=== PATIENT | male | born 1985 | race African-American/Black ===

== ENCOUNTER 2018-07-15 14:04 | Emergency (ER) | payer SELFPAY ==
[2018-07-15] MEDS ORDERED: AMPICILLIN SOD/SULBACTAM 3 GM VIAL IV ONE (14:33)
[2018-07-15] MEDS ORDERED: NORMAL SALINE 1000 ML 1,000 ML IV ONE (14:33)
[2018-07-15] MEDS ORDERED: DEXAMETHASONE SOD PHOS INJ 10 MG/1 ML VIAL IV ONE (14:33)
[2018-07-15] MEDS ORDERED: MORPHINE SULFATE 10 MG/ML INJ IV ONE (14:35)
[2018-07-15] MEDS ORDERED: KETOROLAC TROMETHAMINE INJ/PF 30 MG/1 ML SDV IV ONE (14:35)
--- NOTE | 2018-07-15 14:36 | ER Document Report ---
ED Medical Screen (RME) - General Chief Complaint: Sore Throat Stated Complaint: SORE THROAT Time Seen by Provider: 07/15/18 14:28 Mode of Arrival: Ambulatory Information source: Patient Notes: pt c/o sore throat x 4 days, pt reports chills and bodyaches. Patient complains of difficulty with swallowing. Patient with a left-sided peritonsillar abscess I have greeted and performed a rapid initial assessment of this patient. A comprehensive ED assessment and evaluation of the patient, analysis of test results and completion of the medical decision making process will be conducted by additional ED providers. TRAVEL OUTSIDE OF THE [place] IN LAST 30 DAYS: No - Related Data Allergies/Adverse Reactions: No Known Allergies Allergy (Unverified 07/15/18 14:05) Physical Exam - Vital signs Vitals: Temp Pulse Resp BP Pulse Ox 99.4 F 74 18 149/87 H 99 07/15/18 14:27 07/15/18 14:27 07/15/18 14:27 07/15/18 14:27 07/15/18 14:27 - HEENT Pharynx: Peritonsillar abscess - left Course - Vital Signs Vital signs: Temp Pulse Resp BP Pulse Ox 98.1 F 62 18 142/81 H 100 07/15/18 18:31 07/15/18 18:31 07/15/18 18:31 07/15/18 18:31 07/15/18 18:31 - Laboratory Result Diagrams: 07/15/18 14:58 07/15/18 14:58 Laboratory results interpreted by me: 07/15/18 07/15/18 14:58 14:58 WBC 11.9 H RBC 6.13 H RDW 14.9 H Absolute Neutrophils 8.5 H Absolute Monocytes 1.5 H Glucose 112 H Doctor's Discharge - Discharge Clinical Impression: Left intratonsillar abscess Condition: Stable Disposition: HOME, SELF-CARE Additional Instructions: You were seen today for a left intratonsillar abscess this means that the abscess inside of the left tonsil. You have been treated with an IV antibiotic and IV fluids while in the emergency room as well as IV steroids. These will all help to make the tonsil a little smaller and decrease some of the swelling in your neck and throat. The treatment for an intratonsillar abscess is to have it drained. You will need to follow-up with the ears nose and throat specialist in the morning to have this drained. You will follow-up with Dr. Gilliland's office at 8:00 in the morning. He states to have liquids in the morning but a light breakfast if you eat food. You will be sent home with a prescription for antibiotics, steroids, and pain medications. Augmentin Augmentin is a mixture of amoxicillin and clavulanate. Amoxicillin is a member of the penicillin family. It covers the germs likely to cause ear, bronchial, and urinary infections better than plain penicillin. The addition of clavulanate allows it to cover staph infections of the skin, as well as resistant cases of ear and sinus infections. Your physician has chosen Augmentin for you because of the special nature of your situation. Augmentin is best taken with meals. Nausea after taking the medication is rare, but can occur. Diarrhea can occur, particularly in small children. Vaginal yeast infections, and oral thrush in infants are also common. Contact your physician if these problems occur. Allergy to penicillins is common. If you have had an allergic reaction to any drug of the penicillin family, you should never take any other penicillin. Notify your doctor at once if you develop hives, shortness of breath, swelling, or faintness. STEROID MEDICATION: You have been given an injection of medicine of the cortisone/steroid class. This medication is used to control inflammation or allergy. It is often continued as a pill for a short period of time, until the acute process subsides. There are usually no side effects from short-term use of cortisone-like medications. Some persons feel an increased sense of well-being and are not sleepy at bedtime. Long-term use of cortisone medications is best avoided, unless required for a severe condition. If your condition does not remit, or relapses after the course of corticosteroid medication, you should consult your physician. Toradol Injection You have been given an injection of ketorolac tromethamine (Toradol). This is an excellent, safe drug for pain control. It also has potent antiinflammatory action. You should have significant pain relief within about one hour. Toradol is not addicting and is non-sedating. It does not interfere with driving or work. Call or return if you develop itching, hives, shortness of breath, or rash. Intravenous (IV) Fluids As part of your care today, you received intravenous (IV) fluids. IV fluids are administered to patients who are dehydrated or to those who have certain chemical (electrolyte) abnormalities that need correcting. Oral Narcotic Medication You have been given a prescription for pain control. This medication is a narcotic. It's best taken with food, as nausea can result if taken on an empty stomach. Don't operate machinery or drive within six hours of taking this medication. Do not combine this medicine with alcohol, or with any medication which can cause sedation (such as cold tablets or sleeping pills) unless you get permission from the physician. Narcotics tend to cause constipation. If possible, drink plenty of fluids and eat a diet high in fiber and fruits. FOLLOW-UP CARE: If you have been referred to a physician for follow-up care, call the physician s office for an appointment as you were instructed or within the next two days. If you experience worsening or a significant change in your symptoms, notify the physician immediately or return to the Emergency Department at any time for re-evaluation. Prescriptions: Hydrocodone/Acetaminophen [[place] 5-325 mg Tablet] 1 tab PO Q6HP PRN #7 tablet PRN Reason: Amox Tr/Potassium Clavulanate [Augmentin 875-125 Tablet] 1 tab PO BID 10 Days tablet Dexamethasone [Decadron 4 Mg Tablet] 4 mg PO DAILY #2 tablet Forms: Elevated Blood Pressure, Smoking Cessation Education Referrals: TONYA,NO [NO LOCAL MD] - Follow up as needed HUMBERTO SCHMITT DO [ASSOCIATE] - Follow up tomorrow (Please be at the doctor's office at 8 AM in the morning for incision and drainage of the intratonsillar abscess to left)
[2018-07-15 15:35] LABS: ANION GAP 14 (5-19); BLOOD UREA NITROGEN 10 mg/dL (7-20); CALCIUM 9.8 mg/dL (8.4-10.2); CARBON DIOXIDE 25 mmol/L (22-30); CHLORIDE 103 mmol/L (98-107); GLUCOSE 112 mg/dL (75-110); POTASSIUM 4.4 mmol/L (3.6-5.0); SODIUM 142.4 mmol/L (137-145)
[2018-07-15 15:57] LABS: ABSOLUTE BASOPHILS # (AUTO) 0.1 10^3/uL (0.0-0.2); ABSOLUTE LYMPHOCYTES (AUTO) 1.8 10^3/uL (0.5-4.7); ABSOLUTE MONOCYTES (AUTO) 1.5 10^3/uL (0.1-1.4); ABSOLUTE NEUT (AUTO) 8.5 10^3/uL (1.7-8.2); BASOPHILS % (AUTO) 0.7 % (0-2); EOSINOPHILS % (AUTO) 0.3 % (0-6); HEMATOCRIT 50.5 % (37.9-51.0); HEMOGLOBIN 16.9 g/dL (13.5-17.0); LYMPHOCYTES % (AUTO) 15.2 % (13-45); MEAN CORPUSCULAR HEMOGLOBIN 27.5 pg (27.0-33.4); MEAN CORPUSCULAR HGB CONC 33.4 g/dL (32.0-36.0); MEAN CORPUSCULAR VOLUME 82 fl (80-97); MONOCYTES % (AUTO) 12.2 % (3-13); PLATELET COUNT 223 10^3/uL (150-450); RED BLOOD COUNT 6.13 10^6/uL (4.35-5.55); RED CELL DISTRIBUTION WIDTH 14.9 % (11.5-14.0); SEGMENTED NEUTROPHILS % (AUTO) 71.6 % (42-78); TOTAL CELLS COUNTED % (AUTO) 100 %; WHITE BLOOD COUNT 11.9 10^3/uL (4.0-10.5)
--- NOTE | 2018-07-15 17:13 | RADIOLOGY REPORT (SQ) ---
EXAM DESCRIPTION: CT SOFT TISSUE NECK WITH COMPLETED DATE/TIME: 07/15/2018 4:55 pm REASON FOR STUDY: Enlarged tonsils difficulty swallowing. (right) COMPARISON: None. TECHNIQUE: Post IV contrasted scanning from skull base through lung apices with review of bone, soft tissue and lung windows. Reconstructed coronal and sagittal MPR images reviewed. All images stored on PACS. All CT scanners at this facility use dose modulation, iterative reconstruction, and/or weight based d osing when appropriate to reduce radiation dose to as low as reasonably achievable (ALARA). [facility]: Dose Right [facility]: CareDose [facility]: Dose Right [facility]: Teradose 4D [facility]: [employer] CONTRAST TYPE AND DOSE: contrast/concentration: Isovue 350.00 mg/ml; Total Contrast Delivered: 75.0 ml; Total Saline Delivered: 55.0 ml RENAL FUNCTION: GFR > 60. RADIATION DOSE: CT Rad equipment meets quality standard of care and radiation dose reduction techniq ues were employed. CTDIvol: 19.0 mGy. DLP: 614 mGy-cm. . LIMITATIONS: None. FINDINGS: SKULL BASE: Inferior brain parenchyma unremarkable MAJOR SALIVARY GLANDS: No solid or cystic masses. No inflammatory changes. LYMPHADENOPATHY: No adenopathy. MUCOSAL MASSES OR ASYMMETRY: The left pharyngeal tonsil is enlarged, 4 x 3.2 x 3 cm in size with surr ounding inflammatory change in the adjacent soft tissues. Centrally within the tonsil, a 1.9 x 1.3 c m area of low attenuation is present likely a small intra tonsillar abscess best shown on axial image 41 through 43. Tonsils meet in the midline, causing moderate amanda pharyngeal airway narrowing on axi al image 42. There is peritonsillar edema extending into the left hypopharynx and left aryepiglottic fold without laryngeal airway narrowing. Right pharyngeal tonsil normal size. No inflammatory changes. LARYNX/CORDS: No abnormal findings. VASCULAR STRUCTURES: The major vessels are patent. LUNG APICES: Clear. BONES: Intact. THYROID: Normal size. No masses. PARANASAL SINUSES: Clear. OTHER: No other significant finding. IMPRESSION: Enlarged left pharyngeal tonsil with intra tonsillar abscess. Inflammation extends infe riorly along the left hypopharynx into the aryepiglottic fold. Moderate airway narrowing at the level of the oropharynx. No significant airway narrowing in the lar ynx TECHNICAL DOCUMENTATION: JOB ID: [id number] Quality ID # [id number]: Final reports with documentation of one or more dose reduction techniques (e.g., Au tomated exposure control, adjustment of the mA and/or kV according to patient size, use of iterative reconstruction technique) 2010 [employer]- All Rights Reserved Reading location - IP/workstation name: [email or web address]
[2018-07-15 18:32] VITALS: BP 142/81
--- NOTE | 2018-07-15 18:34 | ER Document Report ---
ED ENT - General Chief Complaint: Sore Throat Stated Complaint: SORE THROAT Time Seen by Provider: 07/15/18 14:28 Mode of Arrival: Ambulatory Notes: 32-year-old male presented to ED for complaint of sore throat times 4 days with fever chills and body aches. He states he had not been to a doctor but the pain was getting worse and he was having more trouble swallowing so he came to the emergency room. He was seen by Dallas Hernandez TRANSCRIBING MACHINE OPERATOR who ordered blood work and a throat culture. TRAVEL OUTSIDE OF THE [place] IN LAST 30 DAYS: No - HPI Patient complains to provider of: Throat problem Onset: Other - 4 days Onset/Duration: Gradual, Worse Quality of pain: Sharp, Stabbing Severity: Severe Pain Level: 5 Context: Recent Illness Location of pain: Throat Associated symptoms: Chills, Fever, Sore throat, Swollen glands Similar symptoms previously: No Recently seen / treated by doctor: No - Related Data Allergies/Adverse Reactions: No Known Allergies Allergy (Unverified 07/15/18 14:05) Past Medical History - General Information source: Patient - Social History Smoking Status: Current Every Day Smoker Cigarette use (# per day): Yes - Pack per day Smoking Education Provided: Yes - Minutes Frequency of alcohol use: Occasional Drug Abuse: Marijuana Lives with: Family Family History: Reviewed & Not Pertinent Patient has suicidal ideation: No Patient has homicidal ideation: No - Past Medical History Cardiac Medical History: Reports: None Pulmonary Medical History: Reports: None EENT Medical History: Reports: None Neurological Medical History: Reports: None Endocrine Medical History: Reports: None Renal/ Medical History: Reports: None Malignancy Medical History: Reports None GI Medical History: Reports: None Musculoskeletal Medical History: Reports None Skin Medical History: Reports None Psychiatric Medical History: Reports: None Traumatic Medical History: Reports: None Infectious Medical History: Reports: None Past Surgical History: Reports: Hx Orthopedic Surgery - Large laceration to left leg and had to go to surgery to repair - Immunizations Immunizations up to date: Yes Review of Systems - Review of Systems Notes: REVIEW OF SYSTEMS: CONSTITUTIONAL : Complains of fever chills and sore throat for the last 4 days EENT: Patient complains of fever and chills for the last 4 days. Denies eye, ear, throat, pain or symptoms. Denies nasal or sinus congestion or discharge. Denies throat, tongue, or mouth swelling or difficulty swallowing. CARDIOVASCULAR: Denies chest pain. Denies palpitations or racing or irregular heart beat. Denies ankle edema. RESPIRATORY: Denies cough, cold, or chest congestion. Denies shortness of breath, difficulty breathing, or wheezing. GASTROINTESTINAL: Denies abdominal pain or distention. Denies nausea, vomiting , or diarrhea. Denies blood in vomitus, stools, or per rectum. Denies black, tarry stools. Denies constipation. GENITOURINARY: Denies difficulty urinating, painful urination, burning, frequency, blood in urine, or discharge. MUSCULOSKELETAL: Denies back or neck pain or stiffness. Denies joint pain or swelling. SKIN: Denies rash, lesions or sores. HEMATOLOGIC : Denies easy bruising or bleeding. LYMPHATIC: Denies swollen, enlarged glands. NEUROLOGICAL: Denies confusion or altered mental status. Denies passing out or loss of consciousness. Denies dizziness or lightheadedness. Denies headache. Denies weakness or paralysis or loss of use of either side. Denies problems with gait or speech. Denies sensory loss, numbness, or tingling. Denies seizures. PSYCHIATRIC: Denies anxiety or stress. Denies depression, suicidal ideation, or homicidal ideation. ALL OTHER SYSTEMS REVIEWED AND NEGATIVE. Dictation was performed using [employer] voice recognition software PHYSICAL EXAMINATION: GENERAL: Well-appearing, well-nourished and in no acute distress. HEAD: Atraumatic, normocephalic. EYES: Pupils equal round and reactive to light, extraocular movements intact, sclera anicteric, conjunctiva are normal. ENT: Nares patent, red swollen tonsils worse on the left side with exudate. Moist mucous membranes. NECK: Normal range of motion, tenderness more to the left neck with lymphadenopathy LUNGS: Breath sounds clear to auscultation bilaterally and equal. No wheezes rales or rhonchi. HEART: Regular rate and rhythm without murmurs ABDOMEN: Soft, nontender, nondistended abdomen. No guarding, no rebound. No masses appreciated. Musculoskeletal: Normal range of motion, no pitting or edema. No cyanosis. NEUROLOGICAL: Cranial nerves grossly intact. Normal speech, normal gait. Normal sensory, motor exams PSYCH: Normal mood, normal affect. SKIN: Warm, Dry, normal turgor, no rashes or lesions noted. Physical Exam - Vital signs Vitals: Temp Pulse Resp BP Pulse Ox 99.4 F 74 18 149/87 H 99 07/15/18 14:27 07/15/18 14:27 07/15/18 14:27 07/15/18 14:27 07/15/18 14:27 Course - Re-evaluation Re-evalutation: 07/16/18 00:51 After examined the patient I ordered a CT IV contrasted soft tissue neck which showed a intratonsillar abscess with swelling to the left side of the oropharynx with some narrowing of the oropharynx. Patient was treated by David TRANSCRIBING MACHINE OPERATOR with steroids antibiotics and IV fluids and Toradol. Patient stated he was feeling much better as the night progressed. I did consult Dr. Petit the ENT for his intratonsillar abscess. When he returned the call to discuss the results of the CT and the labs with him. He stated the patient would be okay to be discharged home to follow-up in the office at 8:00 in the morning. Patient was discharged home per his recommendation of amoxicillin 875, Decadron p.o. and Anderson. Patient to follow-up in ENT's office at 8:00 in the morning. Patient and his girlfriend stated that they would be there in the morning at 8: 00. Patient was discharged home he was able to drink fluids with no difficulty speaking in full sentences and was discharged home. - Vital Signs Vital signs: Temp Pulse Resp BP Pulse Ox 98.1 F 62 18 142/81 H 100 07/15/18 18:31 07/15/18 18:31 07/15/18 18:31 07/15/18 18:31 07/15/18 18:31 - Laboratory Result Diagrams: 07/15/18 14:58 07/15/18 14:58 Laboratory results interpreted by me: 07/15/18 07/15/18 14:58 14:58 WBC 11.9 H RBC 6.13 H RDW 14.9 H Absolute Neutrophils 8.5 H Absolute Monocytes 1.5 H Glucose 112 H - Diagnostic Test Radiology reviewed: Image reviewed, Reports reviewed Discharge - Discharge Clinical Impression: Left intratonsillar abscess Condition: Stable Disposition: HOME, SELF-CARE Additional Instructions: You were seen today for a left intratonsillar abscess this means that the abscess inside of the left tonsil. You have been treated with an IV antibiotic and IV fluids while in the emergency room as well as IV steroids. These will all help to make the tonsil a little smaller and decrease some of the swelling in your neck and throat. The treatment for an intratonsillar abscess is to have it drained. You will need to follow-up with the ears nose and throat specialist in the morning to have this drained. You will follow-up with Dr. Gilliland's office at 8:00 in the morning. He states to have liquids in the morning but a light breakfast if you eat food. You will be sent home with a prescription for antibiotics, steroids, and pain medications. Augmentin Augmentin is a mixture of amoxicillin and clavulanate. Amoxicillin is a member of the penicillin family. It covers the germs likely to cause ear, bronchial, and urinary infections better than plain penicillin. The addition of clavulanate allows it to cover staph infections of the skin, as well as resistant cases of ear and sinus infections. Your physician has chosen Augmentin for you because of the special nature of your situation. Augmentin is best taken with meals. Nausea after taking the medication is rare, but can occur. Diarrhea can occur, particularly in small children. Vaginal yeast infections, and oral thrush in infants are also common. Contact your physician if these problems occur. Allergy to penicillins is common. If you have had an allergic reaction to any drug of the penicillin family, you should never take any other penicillin. Notify your doctor at once if you develop hives, shortness of breath, swelling, or faintness. STEROID MEDICATION: You have been given an injection of medicine of the cortisone/steroid class. This medication is used to control inflammation or allergy. It is often continued as a pill for a short period of time, until the acute process subsides. There are usually no side effects from short-term use of cortisone-like medications. Some persons feel an increased sense of well-being and are not sleepy at bedtime. Long-term use of cortisone medications is best avoided, unless required for a severe condition. If your condition does not remit, or relapses after the course of corticosteroid medication, you should consult your physician. Toradol Injection You have been given an injection of ketorolac tromethamine (Toradol). This is an excellent, safe drug for pain control. It also has potent antiinflammatory action. You should have significant pain relief within about one hour. Toradol is not addicting and is non-sedating. It does not interfere with driving or work. Call or return if you develop itching, hives, shortness of breath, or rash. Intravenous (IV) Fluids As part of your care today, you received intravenous (IV) fluids. IV fluids are administered to patients who are dehydrated or to those who have certain chemical (electrolyte) abnormalities that need correcting. Oral Narcotic Medication You have been given a prescription for pain control. This medication is a narcotic. It's best taken with food, as nausea can result if taken on an empty stomach. Don't operate machinery or drive within six hours of taking this medication. Do not combine this medicine with alcohol, or with any medication which can cause sedation (such as cold tablets or sleeping pills) unless you get permission from the physician. Narcotics tend to cause constipation. If possible, drink plenty of fluids and eat a diet high in fiber and fruits. FOLLOW-UP CARE: If you have been referred to a physician for follow-up care, call the physician s office for an appointment as you were instructed or within the next two days. If you experience worsening or a significant change in your symptoms, notify the physician immediately or return to the Emergency Department at any time for re-evaluation. Prescriptions: Hydrocodone/Acetaminophen [[place] 5-325 mg Tablet] 1 tab PO Q6HP PRN #7 tablet PRN Reason: Amox Tr/Potassium Clavulanate [Augmentin 875-125 Tablet] 1 tab PO BID 10 Days tablet Dexamethasone [Decadron 4 Mg Tablet] 4 mg PO DAILY #2 tablet Forms: Elevated Blood Pressure, Smoking Cessation Education Referrals: TONYA,NO [NO LOCAL MD] - Follow up as needed HUMBERTO PETIT DO [ASSOCIATE] - Follow up tomorrow (Please be at the doctor's office at 8 AM in the morning for incision and drainage of the intratonsillar abscess to left)
== END 2018-07-15 18:43 | disposition home or self-care (01) ==
LOC: ER 14:04
DX: J36 Peritonsillar abscess (principal); R13.10 Dysphagia, unspecified; R50.9 Fever, unspecified; F17.210 Nicotine dependence, cigarettes, uncomplicated; Z71.6 Tobacco abuse counseling
CPT/HCPCS: 99284; 96361; 96374; 96375; 36415; 87880; 85025; 80048; 70491; J0295; J1885; J2270; J7030; J1100